=== PATIENT | female | born 1940 | race Caucasian/White ===

== ENCOUNTER → 2016-10-20 | Outpatient (CLI) | payer MEDICARE | LOC: KOH-I 13:21 | DX: R05 Cough (principal); R91.8 Other nonspecific abnormal finding of lung field | CPT/HCPCS: 71020 ==

== ENCOUNTER → 2016-11-09 | Outpatient (CLI) | payer MEDICARE | LOC: HEART 5 15:30 | DX: I42.2 Other hypertrophic cardiomyopathy (principal) ==